=== PATIENT | male | born 1995 | race Caucasian/White ===

== ENCOUNTER 2020-04-04 15:41 | Emergency (ER) | payer OTHER ==
[~2020-04-04] VITALS: Ht 177.8 cm; Wt 82.0 kg
[2020-04-04 15:52] VITALS: BP 150/105
== END 2020-04-04 16:24 | disposition home or self-care (01) ==
LOC: ER 15:41
DX: F10.129 Alcohol abuse with intoxication, unspecified (principal); Y90.0 Blood alcohol level of less than 20 mg/100 ml; V49.49XA Driver injured in collision with other motor vehicles in traffic accident, initial encounter; Y93.89 Activity, other specified; Y92.89 Other specified places as the place of occurrence of the external cause; Y99.8 Other external cause status
CPT/HCPCS: 99283